=== PATIENT | female | born 1960 | race Caucasian/White ===

== ENCOUNTER → 2016-12-15 | Outpatient (CLI) | payer OTHER ==
[~2016-12-15] MED LIST: ACET65TA OR; CIPR500T19; GEOD40CA; GEOD40CA OR; LEVO25TABR; SYNT150T; SYNT150T OR; TOPI100T; TOPI100T OR; TOPI200T; TOPI200T OR; VIBR100C OR; WELL100T; WELL100T OR; WELL100T2; WELL200T
[2016-12-15 11:22] LABS: FREE T4 0.68 NG/DL (0.76-1.46)
[2016-12-17 00:07] LABS: Lyme Disease IgG/IgM Antibodie <0.91 ISR (0.00-0.90); Lyme Disease IgM Ab Quantitati <0.80 index (0.00-0.79)
== END ==
LOC: M WUC 08:36
PROVIDERS: ATTEND Physician Assistant
DX: Z51.81 Encounter for therapeutic drug level monitoring (principal); Z79.899 Other long term (current) drug therapy; M79.1 Myalgia

== ENCOUNTER → 2016-12-15 | Outpatient (CLI) | payer OTHER | LOC: M WUC 08:33 | PROVIDERS: ATTEND Psychiatry & Neurology Psychiatry | DX: Z51.81 Encounter for therapeutic drug level monitoring (principal); Z79.899 Other long term (current) drug therapy ==

== ENCOUNTER → 2017-08-13 | Outpatient (REF) | payer OTHER ==
[2017-08-13 19:35] LABS: BASO # 0.1 10^3/uL (0.0-0.2); BASO % 0.6 % (0.0-1.0); EOS # 0.1 10^3/uL (0.0-0.50); EOS % 1.1 % (0.0-3.0); HEMATOCRIT 40.3 % (36.0-47.0); HEMOGLOBIN 13.7 g/dl (12.0-15.5); IMMATURE GRANULOCYTE % 0.5 % (0-3.0); LYMPH # 3.6 10^3/uL (1.5-4.5); LYMPH % 35.8 % (24.0-44.0); MEAN CORPUSCULAR HEMOGLOBIN 29.9 pg (27.0-33.0); MONO # 0.8 10^3/uL (0.0-0.8); MONO % 8.3 % (0.0-5.0); NEUTROPHILS # 5.5 10^3/uL (1.8-7.7); NEUTROPHILS % 53.7 % (36.0-66.0); PLATELET COUNT, AUTOMATED 263 10^3/uL (150-450); RED BLOOD COUNT 4.58 10^6/uL (4.00-5.40); RED CELL DISTRIBUTION WIDTH 12.9 % (11.5-14.5); WHITE BLOOD COUNT 10.1 10^3/uL (4.0-10.0)
[2017-08-13 19:53] LABS: ALBUMIN 4.2 GM/DL (3.2-5.2); ALBUMIN/GLOBULIN RATIO 1.45 (1.00-1.93); ALKALINE PHOSPHATASE 90 U/L (45-117); ALT/SGPT 38 U/L (12-78); ANION GAP 7 MEQ/L (8-16); AST/SGOT 19 U/L (7-37); BILIRUBIN,TOTAL 0.3 MG/DL (0.2-1.0); BLOOD UREA NITROGEN 21 MG/DL (7-18); CALCIUM LEVEL 8.9 MG/DL (8.5-10.1); CARBON DIOXIDE LEVEL 25 MEQ/L (21-32); CHLORIDE LEVEL 109 MEQ/L (98-107); CREATININE FOR GFR 0.99 MG/DL (0.55-1.30); FREE T4 0.95 NG/DL (0.76-1.46); GLOMERULAR FILTRATION RATE > 60.0 (>51); GLUCOSE, FASTING 90 MG/DL (70-100); POTASSIUM SERUM 4.1 MEQ/L (3.5-5.1); SODIUM LEVEL 141 MEQ/L (136-145); TOTAL PROTEIN 7.1 GM/DL (6.4-8.2)
[2017-08-17 00:07] LABS: Lyme Disease IgG/IgM Antibodie <0.91 ISR (0.00-0.90); Lyme Disease IgM Ab Quantitati <0.80 index (0.00-0.79)
== END ==
LOC: M LAB REF 19:19
DX: R53.81 Other malaise (principal)
CPT/HCPCS: 84443

== ENCOUNTER → 2017-11-30 | Outpatient (CLI) | payer OTHER ==
[2017-11-30 09:56] LABS: ESTIMATED AVERAGE GLUCOSE 108 MG/DL (60-110); HEMOGLOBIN A1c 5.4 %
[2017-11-30 10:03] LABS: CHOLESTEROL LEVEL 209 MG/DL (<200); CHOLESTEROL RISK RATIO 3.943 (<5); GLUCOSE, FASTING 99 MG/DL (70-100); HDL CHOLESTEROL 53 MG/DL (>40); LDL CHOLESTEROL 116.2 MG/DL (<100); NON-HDL-C 156 MG/DL; TRIGLYCERIDES LEVEL 199 MG/DL (<150)
== END ==
LOC: M WUC 08:25
DX: Z79.899 Other long term (current) drug therapy (principal)
CPT/HCPCS: 82947

== ENCOUNTER → 2018-05-02 | Outpatient (REF) | payer OTHER ==
[2018-05-02 19:37] LABS: FOLLICLE STIMULATING HORMONE 130.6 mIU/mL
== END ==
LOC: M LAB REF 16:40
PROVIDERS: ATTEND Nurse Practitioner Family
DX: L65.9 Nonscarring hair loss, unspecified (principal); R53.83 Other fatigue

== ENCOUNTER → 2019-06-12 | Outpatient (REF) | payer OTHER | LOC: M LAB REF 12:57 | PROVIDERS: ATTEND Nurse Practitioner Family | DX: N76.0 Acute vaginitis (principal) ==

== ENCOUNTER → 2019-06-29 | Outpatient (CLI) | payer OTHER ==
--- NOTE | 2019-06-29 17:05 | REP ---
REASON FOR EXAM: Pain. There are no priors for comparison. FINDINGS: Three views of the shoulder were performed. The acromioclavicular and glenohumeral relationships are within normal limits. There is no acute fracture or destructive osseous lesions. Electronically Signed by Balta Cabrera DO 06/30/2019 09:42 A
--- NOTE | 2019-06-29 17:07 | REP ---
REASON: Pain. No priors for comparison. No history of trauma. FINDINGS: There is no acute fracture, dislocation, subluxation or joint effusion. Electronically Signed by Balta Cabrera DO 06/30/2019 09:42 A
== END ==
LOC: M WUC 15:19
PROVIDERS: ATTEND Nurse Practitioner Family
DX: M25.511 Pain in right shoulder (principal); M25.521 Pain in right elbow

== ENCOUNTER → 2019-11-14 | Outpatient (REF) | payer OTHER | LOC: M LAB REF 17:22 | PROVIDERS: ATTEND Registered Nurse | DX: N76.0 Acute vaginitis (principal) ==

== ENCOUNTER → 2020-04-01 | Outpatient (REF) | payer OTHER | LOC: M LAB REF 15:52 | PROVIDERS: ATTEND Nurse Practitioner Family | DX: R30.0 Dysuria (principal) ==

== ENCOUNTER → 2020-09-17 | Outpatient (CLI) | payer OTHER ==
[2020-09-17 10:13] LABS: CHOLESTEROL RISK RATIO 4.355 (<5)
[2020-09-17 10:44] LABS: HEMOGLOBIN A1c 5.6 %
== END ==
LOC: M WUC 08:18
PROVIDERS: ATTEND Psychiatry & Neurology Psychiatry
DX: Z51.81 Encounter for therapeutic drug level monitoring (principal); Z79.899 Other long term (current) drug therapy

== ENCOUNTER → 2021-06-02 | Outpatient (REF) | payer OTHER ==
[2021-06-03 12:57] LABS: FOLATE > 24.0 NG/ML; VITAMIN B12 LEVEL 617 PG/ML
== END ==
LOC: M LAB REF 12:25
PROVIDERS: ATTEND Registered Nurse
DX: R53.83 Other fatigue (principal)

== ENCOUNTER → 2021-07-08 | Outpatient (REF) | payer OTHER | LOC: M LAB REF 12:51 | PROVIDERS: ATTEND Ophthalmology | DX: D23.111 Other benign neoplasm of skin of right upper eyelid, including canthus (principal) ==

== ENCOUNTER 2022-07-27 11:04 | Inpatient (IN) | payer OTHER ==
[~2022-07-27] VITALS: Ht 152.4 cm; Wt 64.1 kg
[2022-07-27] MEDS: NICOTINE 14 MG/24 HR TRANSDERMAL TD SCH (09:00)
[2022-07-27] MEDS ORDERED: LORA1TAB23 PO (11:12)
[2022-07-27] MEDS ORDERED: LURA20TA PO (11:12)
[2022-07-27] MEDS ORDERED: TOPI100T9 PO (11:12)
[2022-07-27] MEDS ORDERED: SYNT125T PO (11:12)
[2022-07-27 12:02] LABS: HEMATOCRIT 44.6 % (36.0-47.0); MEAN CORPUSCULAR HEMOGLOBIN 29.1 pg (27.0-33.0); MEAN CORPUSCULAR HGB CONC 33.6 g/dl (32.0-36.5); MEAN CORPUSCULAR VOLUME 86.6 fl (80.0-96.0); PLATELET COUNT, AUTOMATED 255 10^3/uL (150-450); RED BLOOD COUNT 5.15 10^6/uL (4.00-5.40); WHITE BLOOD COUNT 11.1 10^3/uL (4.0-10.0)
[2022-07-27 12:26] LABS: BARBITURATES URINE NEGATIVE (NEGATIVE); COCAINE METABOLITE URINE NEGATIVE (NEGATIVE); METHADONE URINE NEGATIVE (NEGATIVE); OPIATES URINE NEGATIVE (NEGATIVE); PHENCYCLIDINE URINE NEGATIVE (NEGATIVE)
[2022-07-27 12:27] LABS: AMPHETAMINES LEVEL URINE NEGATIVE (NEGATIVE); BENZODIAZEPINES URINE NEGATIVE (NEGATIVE); CANNABINOIDS URINE NEGATIVE (NEGATIVE)
[2022-07-27] MEDS ORDERED: HOME MED LIST COMPLETE! XX SCH (12:40)
[2022-07-27 12:42] LABS: ETHYL ALCOHOL (ETHANOL) 0.004 % (0.000-0.010)
[2022-07-27 12:43] LABS: ACETAMINOPHEN LEVEL < 2.0 UG/ML (10.0-20.0)
[2022-07-27 12:44] LABS: ALKALINE PHOSPHATASE 73 U/L (46-116); ALT/SGPT 23 U/L (7.0-40); AST/SGOT 15 U/L (<34); BILIRUBIN,DIRECT 0.2 MG/DL (<0.4); BILIRUBIN,TOTAL 0.6 MG/DL (0.3-1.2); BLOOD UREA NITROGEN 11 MG/DL (9-23); CALCIUM LEVEL 9.2 MG/DL (8.3-10.6); CARBON DIOXIDE LEVEL 25 MMOL/L (20-31); CHLORIDE LEVEL 108 MMOL/L (98-107); CREATININE FOR GFR 0.92 MG/DL (0.55-1.30); GLOMERULAR FILTRATION RATE > 60.0 (>45); GLUCOSE, FASTING 99 MG/DL (74-106); POTASSIUM SERUM 3.8 MMOL/L (3.5-5.1); SALICYLATE LEVEL < 3.0 MG/DL (<30); SODIUM LEVEL 139 MMOL/L (136-145); TOTAL PROTEIN 6.7 G/DL (5.7-8.2)
[2022-07-27 12:47] LABS: THYROID STIMULATING HORMONE 1.084 uIU/ML (0.55-4.78)
[2022-07-27] MEDS ORDERED: MOM 30ML SUSPENSION UDC PO PRN (13:15)
[2022-07-27] MEDS ORDERED: ACETAMINOPHEN TAB 650MG DOSE (2X325MG) PO PRN (13:15)
[2022-07-27] MEDS ORDERED: IBUPROFEN 400MG TAB PO PRN (13:15)
[2022-07-27] MEDS ORDERED: MAALOX 30 ML SUSP *UDC PO PRN (13:15)
[2022-07-27 14:56] VITALS: BP 126/60
[2022-07-27] MEDS: TOPIRAMATE (TopAMAX) 100 MG TAB PO SCH (20:59)
[2022-07-27] MEDS: traZODone 50 MG TAB PO PRN (20:59)
[2022-07-27] MEDS ORDERED: LURASIDONE 20 MG TAB (LATUDA) PO SCH (21:00)
[2022-07-27] MEDS: LEVOTHYROXINE 125MCG TABLET (0.125MG) PO SCH (22:25)
[2022-07-28 06:16] VITALS: BP 132/64
[2022-07-28 06:20] VITALS: BP 107/65
[2022-07-28] MEDS: LORazepam 1 MG TAB PO PRN ×2 (06:55→15:39)
[2022-07-28] MEDS: NICOTINE 14 MG/24 HR TRANSDERMAL TD SCH (08:31)
[2022-07-28] MEDS: buPROPion **XL** TABLET 150MG (WELLBUTRIN XL) PO SCH (11:59)
[2022-07-28 17:12] VITALS: BP 119/69
[2022-07-28] MEDS: ZIPRASIDONE 20MG CAPSULE (GEODON) PO SCH (17:58)
[2022-07-28] MEDS: traZODone 50 MG TAB PO PRN (21:21)
[2022-07-28] MEDS: LEVOTHYROXINE 125MCG TABLET (0.125MG) PO SCH (21:22)
[2022-07-28] MEDS: TOPIRAMATE (TopAMAX) 100 MG TAB PO SCH (21:22)
[2022-07-29 06:00] VITALS: BP 119/59
[2022-07-29] MEDS: LORazepam 1 MG TAB PO PRN (07:15)
[2022-07-29 07:20] LABS: CHOLESTEROL RISK RATIO 5.24 (<5); HDL CHOLESTEROL 38.3 MG/DL (>40); LDL CHOLESTEROL 107.5 MG/DL (<100); NON-HDL-C 162.7 MG/DL
[2022-07-29] MEDS: OMEGA-3 1000MG CAPSULE PO SCH ×2 (09:43→20:58)
[2022-07-29] MEDS: buPROPion **XL** TABLET 150MG (WELLBUTRIN XL) PO SCH (09:43)
[2022-07-29] MEDS: ZIPRASIDONE 20MG CAPSULE (GEODON) PO SCH (17:58)
[2022-07-29 18:19] VITALS: BP 122/75
[2022-07-29] MEDS: traZODone 50 MG TAB PO PRN (20:58)
[2022-07-29] MEDS: TOPIRAMATE (TopAMAX) 100 MG TAB PO SCH (20:58)
[2022-07-29] MEDS: LEVOTHYROXINE 125MCG TABLET (0.125MG) PO SCH (20:58)
[2022-07-30] MEDS: LORazepam 1 MG TAB PO PRN (05:20)
[2022-07-30 07:11] VITALS: BP 104/59
[2022-07-30] MEDS ORDERED: FISH1CAP26 PO (08:30)
[2022-07-30] MEDS ORDERED: TRAZ-252 PO (08:30)
[2022-07-30] MEDS ORDERED: GEOD20CA PO (08:30)
[2022-07-30] MEDS ORDERED: BUPR150T12 PO (08:30)
[2022-07-30] MEDS ORDERED: LORA1TAB23 PO (08:30)
[2022-07-30] MEDS: buPROPion **XL** TABLET 150MG (WELLBUTRIN XL) PO SCH (08:58)
[2022-07-30] MEDS: OMEGA-3 1000MG CAPSULE PO SCH (08:58)
== END 2022-07-30 11:25 | disposition home or self-care (01) | DRG 885 ==
LOC: M ED 11:04 → M ED INP 13:15 → M PSY 15:04
PROVIDERS: ADMIT Psychiatry & Neurology Psychiatry; ATTEND Student in an Organized Health Care Education/Training Program
DX: F31.81 Bipolar II disorder (principal); R45.851 Suicidal ideations; F43.10 Post-traumatic stress disorder, unspecified; F43.29 Adjustment disorder with other symptoms; E03.9 Hypothyroidism, unspecified; H91.90 Unspecified hearing loss, unspecified ear; Z62.810 Personal history of physical and sexual abuse in childhood; Z20.822 Contact with and (suspected) exposure to COVID-19; Z79.890 Hormone replacement therapy; Z79.899 Other long term (current) drug therapy; Z88.2 Allergy status to sulfonamides

== ENCOUNTER → 2022-08-07 | Outpatient (REF) | payer OTHER ==
[~2022-08-07] MED LIST changes: +BUPR150T12 PO; +FISH1CAP26 PO; +GEOD20CA PO; +LORA1TAB23 PO; +LURA20TA PO; +SYNT125T PO; +TOPI100T9 PO; +TRAZ-252 PO
== END ==
LOC: M LAB REF 14:12
PROVIDERS: ATTEND Nurse Practitioner Family
DX: R30.0 Dysuria (principal)
CPT/HCPCS: 87086; G0463

== ENCOUNTER 2022-08-18 06:54 | Inpatient (IN) | payer OTHER ==
[~2022-08-18] VITALS: Ht 152.4 cm; Wt 64.5 kg
[2022-08-18 08:08] LABS: HEMATOCRIT 43.6 % (36.0-47.0); HEMOGLOBIN 14.7 g/dl (12.0-15.5); MEAN CORPUSCULAR HEMOGLOBIN 28.9 pg (27.0-33.0); MEAN CORPUSCULAR HGB CONC 33.7 g/dl (32.0-36.5); MEAN CORPUSCULAR VOLUME 85.8 fl (80.0-96.0); PLATELET COUNT, AUTOMATED 279 10^3/uL (150-450); RED BLOOD COUNT 5.08 10^6/uL (4.00-5.40); WHITE BLOOD COUNT 11.9 10^3/uL (4.0-10.0)
[2022-08-18 08:26] LABS: AMPHETAMINES LEVEL URINE NEGATIVE (NEGATIVE); BARBITURATES URINE NEGATIVE (NEGATIVE); BENZODIAZEPINES URINE NEGATIVE (NEGATIVE); CANNABINOIDS URINE NEGATIVE (NEGATIVE); COCAINE METABOLITE URINE NEGATIVE (NEGATIVE); METHADONE URINE NEGATIVE (NEGATIVE); OPIATES URINE NEGATIVE (NEGATIVE); PHENCYCLIDINE URINE NEGATIVE (NEGATIVE)
[2022-08-18 08:28] LABS: ETHYL ALCOHOL (ETHANOL) < 0.003 % (0.000-0.010)
[2022-08-18 08:29] LABS: ACETAMINOPHEN LEVEL < 2.0 UG/ML (10.0-20.0); ALBUMIN 4.1 G/DL (3.2-5.2); ALKALINE PHOSPHATASE 94 U/L (46-116); ALT/SGPT 25 U/L (7.0-40); AST/SGOT 16 U/L (<34); BILIRUBIN,DIRECT 0.1 MG/DL (<0.4); BILIRUBIN,TOTAL 0.5 MG/DL (0.3-1.2); BLOOD UREA NITROGEN 14 MG/DL (9-23); CALCIUM LEVEL 9.3 MG/DL (8.3-10.6); CARBON DIOXIDE LEVEL 22 MMOL/L (20-31); CHLORIDE LEVEL 107 MMOL/L (98-107); CREATININE FOR GFR 0.93 MG/DL (0.55-1.30); GLOMERULAR FILTRATION RATE > 60.0 (>45); GLUCOSE, FASTING 104 MG/DL (74-106); SODIUM LEVEL 138 MMOL/L (136-145); TOTAL PROTEIN 6.8 G/DL (5.7-8.2)
[2022-08-18 08:30] LABS: SALICYLATE LEVEL < 3.0 MG/DL (<30)
[2022-08-18 08:32] LABS: THYROID STIMULATING HORMONE 2.538 uIU/ML (0.55-4.78)
[2022-08-18] MEDS ORDERED: MULT400T10 PO (09:36)
[2022-08-18] MEDS ORDERED: TRAZ-186 PO (09:36)
[2022-08-18] MEDS ORDERED: ATIV1TAB7 PO (09:36)
[2022-08-18] MEDS ORDERED: LURA20TA PO (09:36)
[2022-08-18] MEDS ORDERED: BUPR150T12 PO (09:36)
[2022-08-18] MEDS ORDERED: ZIPR20CA21 PO (09:36)
[2022-08-18] MEDS ORDERED: HOME MED LIST COMPLETE! XX SCH (09:40)
[2022-08-18] MEDS ORDERED: MAALOX 30 ML SUSP *UDC PO PRN (13:45)
[2022-08-18] MEDS ORDERED: IBUPROFEN 400MG TAB PO PRN (13:45)
[2022-08-18] MEDS ORDERED: ACETAMINOPHEN TAB 650MG DOSE (2X325MG) PO PRN (13:45)
[2022-08-18] MEDS ORDERED: diphenhydrAMINE 25MG CAP PO PRN (13:45)
[2022-08-18] MEDS ORDERED: MOM 30ML SUSPENSION UDC PO PRN (13:45)
[2022-08-18] MEDS: LORazepam 1 MG TAB PO PRN (15:53)
[2022-08-18] MEDS: LURASIDONE 20 MG TAB (LATUDA) PO SCH (18:00)
[2022-08-18] MEDS ORDERED: LEVOTHYROXINE 125MCG TABLET (0.125MG) PO SCH (21:00)
[2022-08-18] MEDS: traZODone 50 MG TAB PO PRN (21:16)
[2022-08-18] MEDS: TOPIRAMATE (TopAMAX) 100 MG TAB PO SCH (21:16)
[2022-08-18] MEDS: ZIPRASIDONE 20MG CAPSULE (GEODON) PO SCH (21:16)
[2022-08-19] MEDS: LEVOTHYROXINE 125MCG TABLET (0.125MG) PO SCH (05:21)
[2022-08-19 06:30] VITALS: BP 126/66
[2022-08-19 07:05] LABS: BASO # 0.1 10^3/uL (0.0-0.2); BASO % 0.6 % (0.0-1.0); EOS # 0.2 10^3/uL (0.0-0.5); EOS % 1.6 % (0.0-3.0); HEMOGLOBIN 14.4 g/dl (12.0-15.5); LYMPH # 3.8 10^3/uL (1.5-5.0); LYMPH % 38.9 % (24.0-44.0); MEAN CORPUSCULAR HEMOGLOBIN 28.9 pg (27.0-33.0); MEAN CORPUSCULAR HGB CONC 33.5 g/dl (32.0-36.5); MEAN CORPUSCULAR VOLUME 86.3 fl (80.0-96.0); MONO # 0.8 10^3/uL (0.0-0.8); MONO % 8.2 % (2.0-8.0); NEUTROPHILS # 4.9 10^3/uL (1.5-8.5); PLATELET COUNT, AUTOMATED 265 10^3/uL (150-450); RED BLOOD COUNT 4.98 10^6/uL (4.00-5.40); WHITE BLOOD COUNT 9.8 10^3/uL (4.0-10.0)
[2022-08-19 07:31] LABS: ALBUMIN 3.7 G/DL (3.2-5.2); BILIRUBIN,TOTAL 0.5 MG/DL (0.3-1.2); CALCIUM LEVEL 8.7 MG/DL (8.3-10.6); CREATININE FOR GFR 1.06 MG/DL (0.55-1.30); GLOMERULAR FILTRATION RATE 56.1 (>45); POTASSIUM SERUM 3.9 MMOL/L (3.5-5.1); TOTAL PROTEIN 6.2 G/DL (5.7-8.2)
[2022-08-19] MEDS: buPROPion **XL** TABLET 150MG (WELLBUTRIN XL) PO SCH (09:07)
[2022-08-19] MEDS: LORazepam 1 MG TAB PO PRN (14:30)
[2022-08-19 16:27] VITALS: BP 132/76
[2022-08-19] MEDS: LURASIDONE 20 MG TAB (LATUDA) PO SCH (18:00)
[2022-08-19] MEDS: ZIPRASIDONE 20MG CAPSULE (GEODON) PO SCH (21:09)
[2022-08-19] MEDS: traZODone 50 MG TAB PO PRN (21:09)
[2022-08-19] MEDS: TOPIRAMATE (TopAMAX) 100 MG TAB PO SCH (21:09)
[2022-08-20] MEDS: LEVOTHYROXINE 125MCG TABLET (0.125MG) PO SCH (05:48)
[2022-08-20 06:19] VITALS: BP 107/57
[2022-08-20] MEDS: buPROPion **XL** TABLET 150MG (WELLBUTRIN XL) PO SCH (09:08)
[2022-08-20] MEDS: LORazepam 1 MG TAB PO PRN (14:07)
[2022-08-20 18:31] VITALS: BP 125/59
[2022-08-20] MEDS: traZODone 50 MG TAB PO PRN (21:06)
[2022-08-20] MEDS: TOPIRAMATE (TopAMAX) 100 MG TAB PO SCH (21:06)
[2022-08-20] MEDS: ZIPRASIDONE 20MG CAPSULE (GEODON) PO SCH (21:06)
[2022-08-21] MEDS: LEVOTHYROXINE 125MCG TABLET (0.125MG) PO SCH (05:36)
[2022-08-21 06:35] VITALS: BP 116/57
[2022-08-21] MEDS: buPROPion **XL** TABLET 150MG (WELLBUTRIN XL) PO SCH (09:14)
[2022-08-21] MEDS: LORazepam 1 MG TAB PO PRN (15:30)
[2022-08-21 16:08] VITALS: BP 137/75
[2022-08-21] MEDS: ZIPRASIDONE 20MG CAPSULE (GEODON) PO SCH (21:03)
[2022-08-21] MEDS: traZODone 50 MG TAB PO PRN (21:03)
[2022-08-21] MEDS: TOPIRAMATE (TopAMAX) 100 MG TAB PO SCH (21:03)
[2022-08-22] MEDS: LEVOTHYROXINE 125MCG TABLET (0.125MG) PO SCH (05:55)
[2022-08-22 06:06] VITALS: BP 125/66
[2022-08-22] MEDS: buPROPion **XL** TABLET 150MG (WELLBUTRIN XL) PO SCH (09:05)
[2022-08-22] MEDS: LORazepam 1 MG TAB PO PRN (14:37)
[2022-08-22 16:36] VITALS: BP 127/68
[2022-08-22] MEDS: ZIPRASIDONE 20MG CAPSULE (GEODON) PO SCH (21:07)
[2022-08-22] MEDS: TOPIRAMATE (TopAMAX) 100 MG TAB PO SCH (21:07)
[2022-08-22] MEDS: traZODone 50 MG TAB PO PRN (21:07)
[2022-08-23] MEDS: LEVOTHYROXINE 125MCG TABLET (0.125MG) PO SCH (06:11)
[2022-08-23 06:43] VITALS: BP 110/63
[2022-08-23] MEDS: buPROPion **XL** TABLET 150MG (WELLBUTRIN XL) PO SCH (09:08)
[2022-08-23] MEDS: LORazepam 1 MG TAB PO PRN (14:46)
[2022-08-23 17:42] VITALS: BP 114/59
[2022-08-23] MEDS: TOPIRAMATE (TopAMAX) 100 MG TAB PO SCH (21:14)
[2022-08-23] MEDS: traZODone 50 MG TAB PO PRN (21:15)
[2022-08-23] MEDS: ZIPRASIDONE 20MG CAPSULE (GEODON) PO SCH (21:15)
[2022-08-24 06:00] VITALS: BP 124/67
[2022-08-24] MEDS: LEVOTHYROXINE 125MCG TABLET (0.125MG) PO SCH (06:00)
[2022-08-24] MEDS ORDERED: GEOD20CA PO ×2 (08:00→08:50)
[2022-08-24] MEDS: buPROPion **XL** TABLET 150MG (WELLBUTRIN XL) PO SCH (08:51)
== END 2022-08-24 08:54 | disposition home or self-care (01) | DRG 885 ==
LOC: M ED 06:54 → M ED INP 14:06 → M PSY 15:38
PROVIDERS: ADMIT Psychiatry & Neurology Psychiatry; ATTEND Psychiatry & Neurology Psychiatry
DX: F31.81 Bipolar II disorder (principal); R45.851 Suicidal ideations; E03.9 Hypothyroidism, unspecified; H91.90 Unspecified hearing loss, unspecified ear; Z81.8 Family history of other mental and behavioral disorders; Z81.4 Family history of other substance abuse and dependence; Z62.810 Personal history of physical and sexual abuse in childhood; Z79.890 Hormone replacement therapy; Z79.899 Other long term (current) drug therapy; Z88.2 Allergy status to sulfonamides; Z20.822 Contact with and (suspected) exposure to COVID-19

== ENCOUNTER → 2023-01-20 | Outpatient (REF) ==
[~2023-01-20] MED LIST changes: +ATIV1TAB7 PO; +MULT400T10 PO; +TRAZ-186 PO; +ZIPR20CA21 PO
== END ==
LOC: M LAB 15:41
PROVIDERS: ATTEND Nurse Practitioner Adult Health
DX: Z00.00 Encounter for general adult medical examination without abnormal findings (principal)

== ENCOUNTER → 2023-04-21 | Outpatient (REF) | payer OTHER ==
[2023-04-21 18:55] LABS: BASO % 0.4 % (0.0-1.0); HEMATOCRIT 39.7 % (36.0-47.0); HEMOGLOBIN 13.3 g/dl (12.0-15.5); LYMPH # 3.3 10^3/uL (1.5-5.0); LYMPH % 40.2 % (24.0-44.0); MEAN CORPUSCULAR HEMOGLOBIN 29.4 pg (27.0-33.0); MEAN CORPUSCULAR HGB CONC 33.5 g/dl (32.0-36.5); MEAN CORPUSCULAR VOLUME 87.8 fl (80.0-96.0); MONO # 0.7 10^3/uL (0.0-0.8); MONO % 8.4 % (2.0-8.0); NEUTROPHILS # 4.1 10^3/uL (1.5-8.5); NEUTROPHILS % 50.4 % (36.0-66.0); PLATELET COUNT, AUTOMATED 260 10^3/uL (150-450); RED BLOOD COUNT 4.52 10^6/uL (4.00-5.40); WHITE BLOOD COUNT 8.1 10^3/uL (4.0-10.0)
[2023-04-21 19:25] LABS: ALBUMIN 3.7 G/DL (3.2-5.2); ALKALINE PHOSPHATASE 110 U/L (46-116); ALT/SGPT 42 U/L (7.0-40); AST/SGOT 18 U/L (<34); BILIRUBIN,TOTAL 0.3 MG/DL (0.3-1.2); BLOOD UREA NITROGEN 20 MG/DL (9-23); CALCIUM LEVEL 9.1 MG/DL (8.3-10.6); CARBON DIOXIDE LEVEL 25 MMOL/L (20-31); CHLORIDE LEVEL 108 MMOL/L (98-107); CREATININE FOR GFR 0.87 MG/DL (0.55-1.30); GLOMERULAR FILTRATION RATE > 60.0 (>45); GLUCOSE, FASTING 101 MG/DL (74-106); IRON (FE) 56 UG/DL (50-170); PERCENT SATURATION 20.5 % (13.2-45.0); POTASSIUM SERUM 3.3 MMOL/L (3.5-5.1); SODIUM LEVEL 138 MMOL/L (136-145); TOTAL IRON BINDING CAPACITY 273 UG/DL (250-425); TOTAL PROTEIN 6.3 G/DL (5.7-8.2)
[2023-04-21 19:26] LABS: FREE T4 1.24 NG/DL (0.89-1.76)
== END ==
LOC: M LABWUC 18:17
PROVIDERS: ATTEND Nurse Practitioner Family
DX: R53.81 Other malaise (principal)

== ENCOUNTER → 2023-06-17 | Outpatient (REF) | payer OTHER | LOC: M LAB REF 12:57 | PROVIDERS: ATTEND Internal Medicine | DX: R53.83 Other fatigue (principal) ==

== ENCOUNTER → 2023-07-13 | Outpatient (REF) | payer OTHER | LOC: M LAB REF 10:16 | PROVIDERS: ATTEND Physician Assistant | DX: R30.0 Dysuria (principal) ==

== ENCOUNTER → 2023-08-10 | Outpatient (REF) | payer OTHER | LOC: M LAB REF 16:24 | PROVIDERS: ATTEND Nurse Practitioner Family | DX: R30.0 Dysuria (principal) ==

== ENCOUNTER → 2024-08-14 | Outpatient (REF) | payer OTHER ==
[~2024-08-14] MED LIST changes: +TOPI-257 PO; -TOPI100T9 PO
[2024-08-15 18:53] LABS: HEPATITIS B SURFACE ANTIGEN NEGATIVE (NEGATIVE)
[2024-08-15 19:13] LABS: HEPATITIS B CORE ANTIBODY IGM NEGATIVE (NEGATIVE)
[2024-08-15 19:14] LABS: HEPATITIS C VIRUS ABY INDEX 0.03 INDEX (<0.8)
[2024-08-16 20:11] LABS: LDL DIRECT 132 mg/dL (<100)
== END ==
LOC: M LAB REF 17:40
PROVIDERS: ATTEND Internal Medicine
DX: R74.8 Abnormal levels of other serum enzymes (principal); E78.00 Pure hypercholesterolemia, unspecified